=== PATIENT | female | born 1950 | race Caucasian/White ===

== ENCOUNTER 2023-04-13 08:24 | Emergency (ER) | payer MEDICARE, OTHER ==
[~2023-04-13] VITALS: Ht 160 cm; Wt 68.2 kg
[~2023-04-13 08:24] MED LIST: ASPI-556 PO; BENA-18 PO; CHOL100018 PO; GABA-1181 PO; HYDR25TA2 PO; LOVA20TA73 PO; METF-1211 PO; METO-558 PO; OMEP20 PO; OS500 PO
[2023-04-13 08:29] VITALS: BP 160/93; PULSE 96; RESP 20; TEMP 98.2
[2023-04-13] MEDS ORDERED: ROSU10TA72 PO (08:40)
[2023-04-13] MEDS ORDERED: AMLO-257 PO (08:40)
[2023-04-13] MEDS ORDERED: BENA-16 PO (08:40)
[2023-04-13] MEDS ORDERED: CYCLOBENZAPRINE HCL 10 MG TABLET PO ONE (09:15)
[2023-04-13] MEDS ORDERED: LIDOCAINE 5% TRANSDERMAL PATCH TD ONE (09:15)
[2023-04-13] MEDS ORDERED: KETOROLAC TROMETHAMINE 30 MG/ML VIAL IM ONE (09:15)
[2023-04-13] MEDS ORDERED: CYCL-448 PO (10:25)
[2023-04-13] MEDS ORDERED: LIDO700A15 TP (10:25)
[2023-04-13] MEDS ORDERED: IBUP-1492 PO (10:25)
== END 2023-04-13 10:43 | disposition home or self-care (01) ==
LOC: EMS 08:24
DX: S13.4XXA Sprain of ligaments of cervical spine, initial encounter (principal); S39.012A Strain of muscle, fascia and tendon of lower back, initial encounter; E78.00 Pure hypercholesterolemia, unspecified; I10 Essential (primary) hypertension; V89.2XXA Person injured in unspecified motor-vehicle accident, traffic, initial encounter; Y93.89 Activity, other specified; Y92.89 Other specified places as the place of occurrence of the external cause; Y99.8 Other external cause status
CPT/HCPCS: 99283; 82962; 96372; J1885

== ENCOUNTER 2023-10-26 09:47 | Emergency (ER) | payer MEDICARE, OTHER ==
[~2023-10-26] VITALS: Ht 160 cm; Wt 81.8 kg
[~2023-10-26 09:47] MED LIST changes: +AMLO-257 PO; -ASPI-556 PO; +BENA-16 PO; -BENA-18 PO; -CHOL100018 PO; +CYCL-448 PO; -GABA-1181 PO; +IBUP-1492 PO; +LIDO700A15 TP; -LOVA20TA73 PO; -METO-558 PO; -OS500 PO; +ROSU10TA72 PO
[2023-10-26 09:52] VITALS: TEMP 98.1
[2023-10-26] MEDS: IBUPROFEN 600 MG TABLET PO ONE (11:22)
[2023-10-26 12:10] VITALS: BP 125/82; PULSE 89; RESP 17
== END 2023-10-26 13:02 | disposition home or self-care (01) ==
LOC: EMS 10:09
DX: L84 Corns and callosities (principal); E78.00 Pure hypercholesterolemia, unspecified; I10 Essential (primary) hypertension
CPT/HCPCS: 99282; Z7502; Z7610